=== PATIENT | female | born 1955 | race Hispanic/Latino ===

== ENCOUNTER 2018-09-16 11:56 | Outpatient (CLI) | payer OTHER ==
[2018-09-16] MEDS ORDERED: PROVENTIL IH ONE (12:48)
== END 2018-09-16 11:57 | disposition home or self-care (01) ==
LOC: PF 11:56
PROVIDERS: ATTEND Internal Medicine
DX: G47.33 Obstructive sleep apnea (adult) (pediatric) (principal); J45.909 Unspecified asthma, uncomplicated; F32.9 Major depressive disorder, single episode, unspecified; I10 Essential (primary) hypertension
CPT/HCPCS: 94060; 94640

== ENCOUNTER 2021-02-23 11:57 | Outpatient (CLI) | payer MEDICARE ==
--- NOTE | 2021-02-23 15:15 | XRay Report ---
Lumbosacral spine 3 views INDICATION: Back pain FINDINGS: Sacrum and sacroiliac joints appear normal. Lumbar spinal alignment appears normal. Endplat e change and facet changes at L5-S1. No compression fracture Signer Name: Natan Holland MD Signed: 02/23/2021 2:53 PM Workstation Name: [id number]
--- NOTE | 2021-02-23 15:16 | XRay Report ---
BILATERAL KNEE 1 VIEW(S) INDICATION / CLINICAL INFORMATION: pain COMPARISON: None available. FINDINGS: BONES / JOINT(S): No acute fracture or subluxation. No significant arthritis. SOFT TISSUES: No significant abnormality. ADDITIONAL FINDINGS: None. 'S Signer Name: Kevyn Dooley MD Signed: 02/23/2021 2:53 PM Workstation Name: [email or web address]
== END 2021-02-23 11:58 | disposition home or self-care (01) ==
LOC: XRAY 11:57
PROVIDERS: ATTEND Orthopaedic Surgery
DX: M47.817 Spondylosis without myelopathy or radiculopathy, lumbosacral region (principal); M25.562 Pain in left knee; M25.561 Pain in right knee
CPT/HCPCS: 72100; 73565